=== PATIENT | male | born 1945 | race African-American/Black ===

== ENCOUNTER 2017-10-11 02:29 | Observation (INO) | payer MEDICARE ==
[2017-10-11] VITALS (7 sets, daily range): BP systolic 95–113; BP diastolic 55–72; Ht 177.8 cm; Wt 104.5 kg
[~2017-10-11] VITALS: Ht 177.8 cm; Wt 104.5 kg
--- NOTE | ~2017-10-11 | HEMODYNAMI ---
PATIENT:ROBERT SOARES MEDICAL RECORD: [id number] : 43 LOCATION:[facility] DE07- [facility]# [id number] ADMISSION DATE: 10/11/17 Generatedon:10/11/201712:04 Patient name: ROBERT SOARES Patient #: [id number] SSN: : 1945 Date of study: 10/11/2017 Page: Of Hemodynamic Procedure Report Patient Data Patient Demographics Procedure consent was obtained First Name: ROBERT Gender: Male Last Name: FANY : 1945 Patient #: [id number] Age: 72 year(s) Race: Black Additional ID: [id number] Contact details Address: [address] [place] [address] [address] State: [place] City: [facility] Zip code: [address] Past Medical History Allergies: No known allergies Admission Admission Data Admission Date: 10/11/2017 Admission Time: 3:48 Room #: D.E07 Lab Results Lab Result Date: 10/11/2017 Lab Result Time: 0:00 Biochemistry Name Units Result Min Max BUN mg/dl 26 --(----)-* 7 18 Creatinine mg/dl 1.3 --(---*)-- 0.6 1.3 CBC Name Units Result Min Max Hemoglobin g/dl 10.3 *-(----)-- 13.5 17.5 Procedure Procedure Types Cath Procedure Diagnostic Procedure LHC C w/Coronaries Procedure Description Procedure Date Procedure Date: 10/11/2017 Procedure Start Time: 11:48 Procedure End Time: 12:03 Procedure Staff Name Function Rajiv Abreu MD Performing Physician Kylee Lux RT Scrub Faizan Gutierres RN Nurse Procedure Data Cath Procedure Fluoroscopy Diagnostic fluoroscopy Total fluoroscopy Time: 2.8 time: 2.8 min min Diagnostic fluoroscopy Total fluoroscopy dose: 452 dose: 452 mGy mGy Contrast Material Contrast Material Type Amount (ml) Isovue 300 45 Entry Location Entry Primary Successful Side Size Upsize Upsize Entry Closure Carlos ccessful Closure Location (Fr) 1 (Fr) 2 (Fr) Remarks Device Remarks Radial Right 6 Fr Mechanical artery Short Compression Diagnostic catheters Device Type Used For End Catheter Placement DIAGNOSTIC Miguel 110cm LV Angiography 5Fr catheter ([id number]) Procedure Complications No complications Procedure Medications Medication Administration Route Dosage Oxygen NC 2 l/min Heparin Flush Bag added to field 2 bags (1000units/500ml NS) 0.9% NaCl I.V. 100 ml/hr Radial Cocktail added to field 1 syringe (Verapomil 2mg/Nitro 400mcg/Heparin 1500units) Lidocaine 2% added to field 20 Versed I.V. 1 mg Fentanyl I.V. 50 mcg Radial Cocktail I.A. 1 syringe (Verapomil 2mg/Nitro 400mcg/Heparin 1500units) Hemodynamics Rest HGB: 10.3 (g/dl) Heart Rate: 76 (bpm) Pressure Samples Time Site Value (mmHg) Purpose Heart Use Rate(bpm) 11:54 LV 98/14,15 EDP 83 Gradients Valve Time Site Site Mean SEP/DFP Peak To Heart Use 1 2 (mmHg) (sec/min) Peak Rate (mmHg) (bpm) Aortic 11:55 LV AO 71 Snapshots Pre Cath Intra NCS Post Cath Vital Signs Time Heart Resp SPO2 etCO2 NIBP Rhythm Pain Sedation Rate (ipm) (%) (mmHg) (mmHg) Status Level (bpm) 11:46:24 80 15 98 0 99/58(76) NSR 0 (11) 10(A) , No pain 11:51:08 75 13 99 0 95/61(83) NSR 0 (11) 10(A) , No pain 11:55:53 80 14 99 0 74/32(60) NSR 0 (11) 9(A) , No pain 12:00:28 79 12 98 0 78/47(70) NSR 0 (11) 9(A) , No pain Medications Time Medication Route Dose Verified Delivered Reason Notes Effectiveness by by 11:40:18 Oxygen NC 2 l/min Rajiv Faizan Per Brady campoverde MD RN 11:40:26 Heparin Flush added 2 bags Rajiv Faizan used for Bag to Brady Gutierres procedure (1000units/500ml field RN NS) 11:40:34 0.9% NaCl I.V. 100 Rajiv Faizan Per ml/hr Brady campoverde MD, RN 11:40:41 Radial Cocktail added 1 Rajiv Faizan used for (Verapomil to syringe Brady Gutierres procedure 2mg/Nitro field MD GUALLPA 400mcg/Heparin 1500units) 11:42:54 Lidocaine 2% added 20ml Rajiv Faizan for local to vial Brady Gutierres anesthetic field MD GUALLPA 11:48:07 Versed I.V. 1 mg Rajiv Faizan for sedation Brady Gutierres MD, RN 11:48:17 Fentanyl I.V. 50 mcg Rajiv Faizan for sedation Brady Gutierres MD, RN 11:51:36 Radial Cocktail I.A. 1 Rajiv Rajiv for (Verapomil syringe Brady Abreu MD vasodilation 2mg/Nitro 400mcg/Heparin 1500units) Procedure Log Time Note 11:00:46 Diagnostic Cath Status : Elective 11:01:21 Faizan Gutierres RN sent for patient. Start room use. 11:01:22 Time tracking: Regular hours (M-F 7:00 - 5:00) 11:01:27 Plan of Care:Hemodynamics will remain stable., Cardiac rhythm will remain stable., Comfort level will be maintained., Respiratory function will remain adequate., Patient/ family verbilizes understanding of procedure., Procedure tolerated without complication., Recovers from procedure without complications.. 11:31:34 Patient received from ED to CCL 1 Alert and oriented. Tansferred to table in Supine position. 11:31:36 Warm blankets applied, and sherry hugger turned on for patient comfort. 11:31:36 Correct patient and procedure confirmed by team. 11:31:38 Signed procedure consent form obtained from patient. 11:31:39 ECG and BP/O2 sat monitors applied to patient. 11:40:04 Vital chart was started 11:40:18 Oxygen 2 l/min NC was administered by Faizan Gutierres RN; Per physician; 11:40:26 Heparin Flush Bag (1000units/500ml NS) 2 bags added to field was administered by Faizan Gutierres RN; used for procedure; 11:40:34 0.9% NaCl 100 ml/hr I.V. was administered by Faizan Gutierres RN; Per physician; 11:40:41 Radial Cocktail (Verapomil 2mg/Nitro 400mcg/Heparin 1500units) 1 syringe added to field was administered by Faizan Gutierres RN; used for procedure; 11:42:54 Lidocaine 2% 20ml vial added to field was administered by Faizan Gutierres RN; for local anesthetic; 11:44:05 Baseline sample Acquired. 11:44:07 Rhythm: sinus rhythm 11:44:09 Full Disclosure recording started 11:44:17 H&P Date Dictated: 10/11/2017 Within 30 days and on chart.. 11:44:18 Pre-procedure instructions explained to patient. 11:44:18 Pre-op teaching completed and patient verbalized understanding. 11:44:22 Family unavailable. 11:44:25 Patient NPO since Breakfast. 11:44:50 Patient allergic to No known allergies 11:44:52 Is the patient allergic to Iodine/contrast media? No. 11:45:28 Is patient on blood thinner?Yes 11:45:32 ACC The patient was administered the following blood thiners within the last 24 hours: ACCPlavix 11:45:33 Patient diabetic? Yes. 11:45:35 If diabetic: On Metformin? Yes 11:45:39 If on Metformin: Last Dose? 10/10/2017 11:45:40 ----Pre-sedation anethsthesia assessment.---- 11:45:43 Previous problem with sedation/anesthesia? No ? 11:45:44 Snore? No 11:45:46 Sleep apnea? No 11:45:47 Deviated septum? No 11:45:49 Opens mouth fully? Yes 11:45:50 Sticks out tongue? Yes 11:45:52 Airway obstruction? No ? 11:45:54 Dentures? No ? 11:45:57 Pre procedure: right dorsailis pedis pulse 1+ Palpable, but thready & weak; easily obliterated 11:46:01 Modified Galen's test Ulnar < 7 seconds 11:46:04 Patient pain scale 0/10 ?. 11:46:07 IV patent on arrival in right hand with 0.9% NaCl at 10ml/hr. 11:46:41 Right Radial & Right Groin area was prepped with chlora-prep and draped in sterile fashion 11:46:42 Alarms reviewed by R. N. 11:46:42 Sharps counted by scrub and verified by R.N. 11:46:44 Physician arrived 11:46:44 --------ALL STOP TIME OUT------ 11:46:45 Final Timeout: patient, procedure, and site verified with staff and physician. All members of the team are in agreement. 11:46:46 Right Radial & Right Groin site verified by team. 11:46:50 Physical assessment completed. ASA score P 2 - A patient with mild systemic disease as per Rajiv Abreu MD. 11:46:54 Sedation plan: IV Moderate Sedation Medication:Versed, Fentanyl 11:46:59 Use device set Radial Dx or PCI 11:47:00 ACIST Syringe (71865) opened to sterile field. 11:47:01 Medline Cath Pack ([id number]) opened to sterile field. 11:47:01 Bag Decanter (2002S) opened to sterile field. 11:47:02 DIAGNOSTIC WIRE .035 260cm J wire (581466) opened to sterile field. 11:47:02 ACIST Hand Control (26712) opened to sterile field. 11:47:03 ACIST Manifold (21152) opened to sterile field. 11:47:04 Tegaderm 4 x 4 (1626W) opened to sterile field. 11:47:04 MBrace Wrist Support ([id number]) opened to sterile field. 11:47:05 NEEDLE Cook 21G 4cm Radial (T64243) opened to sterile field. 11:47:07 TR BAND Standard (JUL23XDT) opened to sterile field. 11:47:09 SHEATH 6Fr Prelude Radial ([id number]) opened to sterile field. 11:47:13 Procedure started. 11:47:27 Zero performed for pressure channel P1 11:47:31 Zero performed for pressure channel P1 11:48:05 Local anesthetic to right radial artery with Lidocaine 2% by Rajiv Abreu MD.INITIAL ACCESS ONLY 11:48:07 Versed 1 mg I.V. was administered by Faizan Gutierres RN; for sedation; 11:48:13 A 6 Fr Short sheath was inserted into the Right Radial artery 11:48:17 Fentanyl 50 mcg I.V. was administered by Faizan Gutierres RN; for sedation; 11:48:50 Lab Result : BUN 26 mg/dl 11:48:50 Lab Result : Creatinine 1.3 mg/dl 11:48:50 Lab Result : Hemoglobin 10.3 g/dl 11:50:08 Lab results completed and on chart. 11:51:36 Radial Cocktail (Verapomil 2mg/Nitro 400mcg/Heparin 1500units) 1 syringe I.A. was administered by Rajiv Abreu MD; for vasodilation; 11:51:47 A DIAGNOSTIC Miguel 110cm 5Fr catheter (247203) was advanced over the wire and used for LV Angiography. 11:52:05 shahid dinaLiveOffice rt monitor 11:54:50 LV angiography performed. 11:54:53 LV gram done using JOHNSON 11:55:24 EF : 60 % 11:55:26 LV hemodynamics recorded. 11:55:54 Zero performed for pressure channel P1 11:56:05 Zero performed for pressure channel P1 11:56:14 Zero performed for pressure channel P1 11:56:21 Zero performed for pressure channel P1 11:57:42 LCA angiography performed. 11:58:04 RCA angiography performed. 11:58:11 Catheter removed. 11:58:16 Contrast amount:Isovue 300 45ml. 11:58:25 Sheath removed intact; hemostasis achieved with Mechanical Compression to the Right Radial artery. 11:58:29 Procedure ended.(Physican Out) 11:59:45 Fluoroscopy time 02.80 minutes. 11:59:51 Fluoroscopy dose: 452 mGy 11:59:51 Flurop Dose total: 452 11:59:56 Sharps counted by scrub and verified by R.N. 11:59:58 TR band inflated with 0cc of air. 11:59:59 Insertion/operative site no bleeding no hematoma. 12:00:05 Post right radial artery:stable 12:00:07 Post Procedure Pulses reassessed and unchanged 12:00:14 Post procedure rhythm: sinus rhythm 12:00:15 Post procedure instruction explained to patient.Patient verbalizes understanding. 12:00:17 Patient needs reinforcement of post procedure teaching. 12:00:27 Procedure and supply charges have been captured, reviewed, submitted and are correct. 12:00:47 Procedure Complication : No complications 12:03:13 Vital chart was stopped 12:03:14 See physician's report for complete and final results. 12:03:16 Report given to Pre/Post Procedure Room. 12:03:20 Patient transfered to Pre/Post Procedure Room with Stretcher. 12:03:22 Procedure ended. 12:03:22 Full Disclosure recording stopped 12:03:24 End room use (Document Last) Device Usage Item Name Manufacture Quantity Catalog Number Hospital Part Current M inimal Lot# / Charge Number Stock Stock Serial# Code ACIST Syringe Acist 1 42134 320947 692284 219756 2 0 (71671) Medical Systems Inc Medline Cath Cardinal 1 [id number] 115235 63468 781300 5 Pack Health ([id number]) Bag Decanter Microtek 1 2001S 398183 99589 974204 5 (2001S) Medical Inc. DIAGNOSTIC WIRE St Lexa 1 523906 641552 026305 918260 3 0 .035 260cm J wire (759862) ACIST Hand Acist 1 10394 632396 400001 933416 5 Control (13282) Medical Systems Inc ACIST Manifold Acist 1 76867 220282 656528 528930 5 (78613) Medical Systems Inc Tegaderm 4 x 4 3M 1 1626W 833821 787969 391517 5 (1626W) MBrace Wrist Advanced 1 140-0250-00 057373 38690 899597 5 Support Vascular ([id number]) Dynamics NEEDLE Cook 21G Cook Medical 1 [id number] 898576 681579 821621 5 4cm Radial (S57159) TR BAND Terumo 1 [id number] 061670 863633 253030 4 0 Standard ([id number]) SHEATH 6Fr Merit 1 [id number] 294417 464169 597533 5 Prelude Radial Medical ([id number]) DIAGNOSTIC Terumo 1 49-9066 191011 386608 182681 5 Miguel 110cm 5Fr catheter (514761) Signature Audit [place] Stage Time Signature Unsigned Intra-Procedure 10/11/2017 Kylee Lux 12:04:20 PM RT(R) [facility] [address] [place] [address]
--- NOTE | ~2017-10-11 | OP ---
PATIENT NAME: ROBERT SOARES MEDICAL RECORD: [id number] :43 LOCATION:[facility]- ADMISSION DATE:10/11/17 SURGEON: RAJIV ALDANA MD DATE OF OPERATION: 10/11/2017 PROCEDURE: Left heart catheterization, LV gram, coronary angiogram. IT DESKTOP SUPPORT SPECIALIST: Rajiv Aldana MD PROCEDURE IN DETAIL: The patient was brought into cardiac catheterization lab in stable condition. Both groins were sterilely prepped and draped, including the right wrist. The patient had a 6-Mexican sheath placed in the right radial artery using modified Seldinger technique. We then selectively engaged the left coronary artery, the right coronary artery, and the left ventricular cavity respectively. FINDINGS: 1. Left main is normal. 2. The LAD is normal. 3. The circumflex is normal. 4. The RCA is dominant and normal. 5. Hemodynamics: Left ventricular ejection fraction is 60%. End-diastolic pressure was normal. No significant mitral regurgitation. No gradient across the aortic valve. IMPRESSION: Normal coronary arteries. RECOMMENDATIONS: Look for other etiologies of the patient's chest pain syndrome. TRANSINT:[id number] Voice Confirmation ID: [id number] DOCUMENT ID: [id number] RAJIV ALDANA MD at 0841 CC: [id number] DICTATION DATE: 10/11/17 1201 STAMPING DIE MAKER BENCH: 10/11/17 1306 DIS IN 10/11/17 [address] [place] [address]
[2017-10-11] MEDS ORDERED: RIOMET500 MG/5 M (02:33)
[2017-10-11] MEDS ORDERED: BP MEDS (02:33)
[2017-10-11 02:54] LABS: BASOPHILS 0.4 % (0-2); EOSINOPHILS 2.9 % (0-7); HEMATOCRIT 32.5 % (42.0-54.0); HEMOGLOBIN 10.3 g/dL (13.5-17.5); LYMPHOCYTES 38.3 % (15-50); MCH 30.3 pg (26.0-34.0); MCHC 31.7 g/dL (31.0-37.0); MCV 95.6 fL (80.0-100.0); MEAN PLATELET VOLUME 11.2 fL (7.4-10.4); MONOCYTES 9.2 % (2-11); NEUTROPHILS 49.2 % (40-80); PLATELET COUNT 138 10x3/uL (130-400); RDW 13.4 % (11.5-14.5); WBC 5.5 10x3/uL (4.8-10.8)
[2017-10-11 03:07] LABS: APTT 29.2 SECONDS (22.8-39.4); INR 0.97 (0.85-1.17); PROTIME 12.5 SECONDS (11.6-15.0)
[2017-10-11 03:15] LABS: ALBUMIN 3.3 g/dL (3.4-5.0); ALKALINE PHOSPHATASE 43 U/L (46-116); ALT (SGPT) 21 U/L (10-68); BILIRUBIN - TOTAL 0.17 mg/dL (0.2-1.3); CALC OSMOLALITY 289 mosm/kg (275-300); CALCIUM 8.4 mg/dL (8.5-10.1); CARBON DIOXIDE 29.6 mmol/L (21.0-32.0); CHLORIDE - SERUM 104 mmol/L (98-107); CREATININE - SERUM 1.3 mg/dL (0.6-1.3); POTASSIUM - SERUM 3.7 mmol/L (3.5-5.1); PROTEIN - SERUM 7.4 g/dL (6.4-8.2); SODIUM 142 mmol/L (136-145); UREA NITROGEN 27 mg/dL (7-18); eGFR NON AFRICAN AMERICAN 57 mL/min (90-120)
[2017-10-11 03:16] LABS: GLUCOSE 138 mg/dL (74-106)
[2017-10-11 03:24] LABS: CKMB 0.8 U/L (0.0-3.6); CREATINE KINASE 98 UL (21-232); PRO BNP 127 pg/mL (0-125)
[2017-10-11 03:25] LABS: TROPONIN-I < 0.017 ng/mL (0.000-0.060)
[2017-10-11 07:30] LABS: CKMB 0.6 U/L (0.0-3.6); CREATINE KINASE 88 UL (21-232)
[2017-10-11 07:36] LABS: TROPONIN-I < 0.017 ng/mL (0.000-0.060)
[2017-10-11 08:45] LABS: BASOPHILS 0.4 % (0-2); EOSINOPHILS 2.8 % (0-7); HEMATOCRIT 32.8 % (42.0-54.0); HEMOGLOBIN 10.3 g/dL (13.5-17.5); LYMPHOCYTES 27.6 % (15-50); MCH 30.3 pg (26.0-34.0); MCHC 31.4 g/dL (31.0-37.0); MCV 96.5 fL (80.0-100.0); MONOCYTES 9.6 % (2-11); NEUTROPHILS 59.6 % (40-80); PLATELET COUNT 136 10x3/uL (130-400); RDW 13.7 % (11.5-14.5); WBC 5.3 10x3/uL (4.8-10.8)
[2017-10-11 08:49] LABS: ANION GAP 10.8 mmol/L (8-16); CALCIUM 8.7 mg/dL (8.5-10.1); CARBON DIOXIDE 30.6 mmol/L (21.0-32.0); CREATININE - SERUM 1.3 mg/dL (0.6-1.3); POTASSIUM - SERUM 4.4 mmol/L (3.5-5.1)
== END 2017-10-11 17:58 | disposition home or self-care (01) ==
LOC: D.ER 02:29 → D.EDHOLD 03:48 → OBSVTIME 03:48 → D.EDHOLD 13:36 → D.CLR 16:31
PROVIDERS: Emergency Medicine; Internal Medicine Cardiovascular Disease
DX: R07.89 Other chest pain (principal); I10 Essential (primary) hypertension; E11.9 Type 2 diabetes mellitus without complications

== ENCOUNTER → 2019-06-23 13:54 | Outpatient (CLI) | payer MEDICARE, MEDICAID ==
[2017-10-11 08:35] VITALS: BMI 33.0
[~2019-06-23 13:54] MED LIST: BP MEDS; RIOMET500 MG/5 M
[2019-06-23 14:22] LABS: BASOPHILS 0.4 % (0-2); EOSINOPHILS 0.4 % (0-7); HEMATOCRIT 35.2 % (42.0-54.0); HEMOGLOBIN 10.8 g/dL (13.5-17.5); IMMATURE GRANULOCYTES 1.4 % (0-5); LYMPHOCYTES 7.2 % (15-50); MCH 29.3 pg (26.0-34.0); MCHC 30.7 g/dL (31.0-37.0); MCV 95.4 fL (80.0-100.0); MEAN PLATELET VOLUME 11.5 fL (7.4-10.4); NEUTROPHILS 78.6 % (40-80); RBC 3.69 10x6/uL (4.20-6.10); RDW 15.5 % (11.5-14.5)
[2019-06-23 14:24] LABS: PLATELET COUNT 194 10x3/uL (130-400)
[2019-06-23 14:37] LABS: ALBUMIN 3.6 g/dL (3.4-5.0); ANION GAP 11.6 mmol/L (8-16); BILIRUBIN - TOTAL 0.14 mg/dL (0.2-1.3); CALCIUM 8.6 mg/dL (8.5-10.1); CARBON DIOXIDE 25.7 mmol/L (21.0-32.0); CREATININE - SERUM 1.6 mg/dL (0.6-1.3); POTASSIUM - SERUM 4.3 mmol/L (3.5-5.1)
== END | disposition home or self-care (01) ==
LOC: D.LABREF 13:54
PROVIDERS: ATTEND Internal Medicine Medical Oncology
DX: C83.36 Diffuse large B-cell lymphoma, intrapelvic lymph nodes (principal)

== ENCOUNTER 2019-08-19 23:46 | Observation (INO) | payer MEDICARE, MEDICAID ==
[~2019-08-19] VITALS: Ht 177.8 cm; Wt 109.5 kg
[2019-08-19] MEDS ORDERED: SINGULAIR10 MG PO (23:59)
[2019-08-20] MEDS ORDERED: LISINOPRIL10 MG PO (00:03)
[2019-08-20] MEDS ORDERED: GLUCOPHAGE500 MG PO (00:09)
[2019-08-20 00:41] LABS: APTT 31.3 SECONDS (22.8-39.4); INR 0.93 (0.85-1.17); PROTIME 12.4 SECONDS (11.6-15.0)
[2019-08-20 00:45] LABS: CALC OSMOLALITY 286 mosm/kg (275-300); CALCIUM 8.4 mg/dL (8.5-10.1); CARBON DIOXIDE 25.4 mmol/L (21.0-32.0); CHLORIDE - SERUM 105 mmol/L (98-107); CREATININE - SERUM 1.9 mg/dL (0.6-1.3); GLUCOSE 165 mg/dL (74-106); POTASSIUM - SERUM 3.9 mmol/L (3.5-5.1); SODIUM 140 mmol/L (136-145); UREA NITROGEN 25 mg/dL (7-18); eGFR NON AFRICAN AMERICAN 37 mL/min (90-120)
[2019-08-20 00:55] LABS: BASOPHILS 0.3 % (0-2); EOSINOPHILS 0.4 % (0-7); HEMATOCRIT 28.5 % (42.0-54.0); HEMOGLOBIN 8.8 g/dL (13.5-17.5); IMMATURE GRANULOCYTES 7.5 % (0-5); MCH 30.1 pg (26.0-34.0); MCHC 30.9 g/dL (31.0-37.0); MCV 97.6 fL (80.0-100.0); MEAN PLATELET VOLUME 11.5 fL (7.4-10.4); MONOCYTES 12.7 % (2-11); NEUTROPHILS 75.1 % (40-80); RBC 2.92 10x6/uL (4.20-6.10); RDW 17.2 % (11.5-14.5); WBC 6.7 10x3/uL (4.8-10.8)
[2019-08-20 00:56] LABS: PLATELET COUNT 101 10x3/uL (130-400)
[2019-08-20 01:01] LABS: ALBUMIN 3.3 g/dL (3.4-5.0); ALKALINE PHOSPHATASE 46 U/L (30-120); ALT (SGPT) 22 U/L (10-68); CKMB 0.9 U/L (0.0-3.6); CREATINE KINASE 81 UL (21-232); MAGNESIUM - SERUM 1.6 mg/dL (1.8-2.4); PROTEIN - SERUM 6.9 g/dL (6.4-8.2)
[2019-08-20 01:05] LABS: TROPONIN-I < 0.017 ng/mL (0.000-0.060)
[2019-08-20 02:09] VITALS: BP 101/60
[2019-08-20 04:19] VITALS: Ht 177.8 cm; Wt 109.5 kg
--- NOTE | 2019-08-20 08:00 | NUR ---
DR GILBERT IN ROOM TALKING TO PATIENT. POSSE ALARM IN ROOM TO BE PLACED. NON SKID SOCKS APPLIED. INCENTIVE SPIROMETER RECIEVED. CL IN REACH. WILL PLACE BED ALARM ONCE DR GILBERT IS FINISHED. TM
[2019-08-20] MEDS ORDERED: PRAVACHOL20 MG PO (08:24)
[2019-08-20 09:08] VITALS: BP 87/56
[2019-08-20 12:24] VITALS: BP 110/65
--- NOTE | 2019-08-20 13:20 | NUR ---
POSSE ALARM ON. NO NEEDS AT THIS TIME. CL IN REACH. WCTM
--- NOTE | 2019-08-20 17:54 | HP ---
PATIENT: ROBERT SOARES MEDICAL RECORD: [id number] ACCOUNT: [id number] LOCATION:[id number] : 43 ADMISSION DATE: 08/20/19 PCP: HAYDEE BALTAZAR HISTORY AND PHYSICAL EXAMINATION DATE OF ADMISSION: 08/20/2019 CHIEF COMPLAINT: Weakness. HISTORY OF PRESENT ILLNESS: This is a 73-year-old white male who was brought in to the ER today with reportedly a syncopal episode. I asked him if he actually passed all the way out, he states he did not. He felt really dizzy like things were spinning, but he states he never fell and never did totally lose consciousness. Please note, this H&P has been dictated at approximately 1:30 p.m. on 08/20/2019 because I have taken the time to review some of his records from [facility]. His primary care doctor is Dr. Baltazar, a access services librarian at [facility] and the patient has an oncologist, Dr. Ortega there as well. The patient has a history of prostate cancer, hypertension, diabetes, hyperlipidemia and a more recent diagnosis of testicular lymphoma, high grade B-cell. He is undergoing chemotherapy every few weeks by Dr. Ortega and the last had chemotherapy few weeks ago. In the ER, the patient's comprehensive metabolic panel was unremarkable except for BUN 25 and creatinine 1.9 (review in [facility] from [facility] at [facility] shows his creatinine is usually 1.1-1.5). His CBC showed a normal white count, but his hemoglobin was down to 8.8 and over the last 2 years, his hemoglobin has been running around 11.0-11.2, the last checked in May of this year. His magnesium was a little low at 1.6. Troponin was normal. He has assigned observation for some IV fluids, it is felt that he may be dehydrated. PAST MEDICAL AND SURGICAL HISTORY: Again, prostate cancer for which he received radiation therapy, hypertension, type 2 diabetes, hyperlipidemia, high-grade B-cell testicular lymphoma. 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 He had a left radical orchiectomy done in April of 2019 at [facility] and he had port placement on 06/02/2019 at [facility]. DRUG ALLERGIES: None. CURRENT MEDICATIONS: Singulair 10 mg at bedtime, lisinopril 10 mg once a day, metformin 500 mg 1 p.o. b.i.d., pravastatin 20 mg once a day. HABITS: Denies smoking, but has done oral tobacco. Denies alcohol or drug use. SOCIAL HISTORY: He states he lives alone. FAMILY HISTORY: Unknown. REVIEW OF SYSTEMS: GENERAL: He states he has lost "a lot of weight" over the last few months. HEENT: No particular sinus or allergy problems. RESPIRATORY: No known diagnosis of COPD or emphysema. CARDIAC: He has a history of hypertension. GASTROINTESTINAL: No significant problems there. GENITOURINARY: Has history of prostate cancer and testicular lymphoma. MUSCULOSKELETAL: No significant joint aches or pains. HISTORY AND PHYSICAL [id number] ROBERT SOARES NEUROLOGIC: No seizures. No migraines. PSYCHIATRIC: Denies depression or melancholia. PHYSICAL EXAMINATION: VITAL SIGNS: Temperature 98.4, pulse 80, respirations 16, blood pressure 101/60, O2 sat 98% on room air. GENERAL: He is awake and alert, pleasant. He does not appear to be in acute distress. SKIN: Warm and dry. HEENT: Grossly within normal limits. NECK: Supple. HEART: Regular rate and rhythm without murmur. LUNGS: Clear. ABDOMEN: Soft, flat, nontender. EXTREMITIES: No edema. NEUROLOGIC: Unremarkable. LABORATORY AND DIAGNOSTIC DATA: EKG shows normal sinus rhythm, rate 85. Basic metabolic panel: Sodium 140, potassium 3.9, chloride 105, CO2 25.4, BUN 25, creatinine 1.9, glucose 165, calcium 8.4, magnesium 1.6. Liver functions are all normal. CBC showed a white count of 6700, hemoglobin 8.8, hematocrit 28.5, platelets number 101,000. Liver functions are normal. Troponin less than 0.017. INR 0.93. CT of the head shows no acute process. CT of the cervical spine shows no traumatic fracture or listhesis of the cervical spine. ASSESSMENT: 1. Acute kidney injury on mild chronic kidney disease. 2. Near syncope. PLAN: He is given IV fluids. His blood pressure has been on the low end of normal. His lisinopril was held for right now. We will have physical therapy walk him. We will check Hemoccult if he has a BM. Otherwise, hopefully, we will getting him up moving and hold the lisinopril. I have called Dr. Ortega's office and the patient has an appointment with her on 08/28/2019. Other tests or procedures as warranted. TRANSINT:[id number] Voice Confirmation ID: [id number] DOCUMENT ID: [id number] LEA GILBERT MD at 1754 CC: [id number] DICTATION DATE: 08/20/19 1351 FIRST AID INSTRUCTOR: 08/20/19 1446 ADM IN [id number] [place] [id number]
[2019-08-20 18:01] VITALS: BP 92/58
[2019-08-20 20:00] VITALS: BP 98/49
[2019-08-21] VITALS: BP 114/75
--- NOTE | 2019-08-21 01:07 | NUR ---
REC'D. CHGE OF SHIFT WALKING ROUNDS SITTING UP IN CHAIR WITH CRISTIAN ALARM IN PLACE ASSISTED TO BED CRISTIAN MAT TURNED ON.DENIES ANY NEEDS AT PRESENT TIME. WILL CONTINUE TO MONITOR FAN FOLLOW CURRENT PLAN OF CARE.
[2019-08-21 04:00] VITALS: BP 116/62
--- NOTE | 2019-08-21 04:44 | NUR ---
I have reviewed this patient and I concur with the Shift Assessment completed by the Licensed Practical Nurse today this shift.
[2019-08-21 06:34] LABS: BASOPHILS 0.4 % (0-2); EOSINOPHILS 0.8 % (0-7); HEMATOCRIT 26.3 % (42.0-54.0); HEMOGLOBIN 8.3 g/dL (13.5-17.5); IMMATURE GRANULOCYTES 6.8 % (0-5); MCH 30.7 pg (26.0-34.0); MCHC 31.6 g/dL (31.0-37.0); MCV 97.4 fL (80.0-100.0); MEAN PLATELET VOLUME 11.2 fL (7.4-10.4); MONOCYTES 15.2 % (2-11); NEUTROPHILS 70.8 % (40-80); PLATELET COUNT 83 10x3/uL (130-400); RDW 17.1 % (11.5-14.5); WBC 5.1 10x3/uL (4.8-10.8)
[2019-08-21 07:15] LABS: ALBUMIN 2.8 g/dL (3.4-5.0); ANION GAP 9.3 mmol/L (8-16); BILIRUBIN - TOTAL 0.13 mg/dL (0.2-1.3); CALCIUM 7.7 mg/dL (8.5-10.1); CARBON DIOXIDE 27.7 mmol/L (21.0-32.0); MAGNESIUM - SERUM 1.8 mg/dL (1.8-2.4)
[2019-08-21 07:16] LABS: CREATININE - SERUM 1.4 mg/dL (0.6-1.3)
--- NOTE | 2019-08-21 08:00 | NUR ---
ASSESSMENT PER FLOW SHEET. PATIENT IS WITHOUT DISRESS.HE DENIES NEEDS AT PRESENT.CALL LIGHT IN REACH
[2019-08-21 09:32] VITALS: BP 108/49
[2019-08-21 09:42] LABS: PLATELET ESTIMATE DECREASED
[2019-08-21 09:43] LABS: ANISOCYTOSIS OCC; POLYCHROMASIA OCC
--- NOTE | 2019-08-21 13:23 | NUR ---
DISCHARGE INSTRUCTIONS,STATES UNDERSTANDING. PORT FLUSHED PER PROTOCOL AND NEEDLE DCD.
--- NOTE | 2019-08-21 14:15 | NUR ---
LEFT UNIT VIA WHEELCHAIR FOR TRANSPORT HOME
== END 2019-08-21 15:03 | disposition home or self-care (01) ==
LOC: D.ER 23:46 → OBSVTIME 08-20 02:18 → D.MS 08-20 02:18
PROVIDERS: Family Medicine; ADMIT Family Medicine; ATTEND Family Medicine
DX: I12.9 Hypertensive chronic kidney disease with stage 1 through stage 4 chronic kidney disease, or unspecified chronic kidney disease (principal); N18.9 Chronic kidney disease, unspecified; N17.9 Acute kidney failure, unspecified; C62.92 Malignant neoplasm of left testis, unspecified whether descended or undescended; R55 Syncope and collapse; D64.9 Anemia, unspecified; R42 Dizziness and giddiness; E11.22 Type 2 diabetes mellitus with diabetic chronic kidney disease; E78.5 Hyperlipidemia, unspecified